=== PATIENT | female | born 1945 | race Caucasian/White ===

== ENCOUNTER → 2018-06-10 | Outpatient (CLI) | payer MEDICARE, OTHER ==
[~2018-06-10] MED LIST: IBAN150T6 PO; TRILI135PT PO; VALS-25 PO
--- NOTE | 2018-06-11 11:20 | RADIOLOGY IMAGING REPORT ---
FACILITY: [facility] PATIENT NAME: Irais DUMAS : [id number] MR: [id number] V: [id number] EXAM DATE: ORDERING PHYSICIAN: ROSY HERRERA TECHNOLOGIST: Calli Dobson PROCEDURE:BILATERAL DIGITAL SCREENING MAMMOGRAM WITH CAD ASSISTED INTERPRETATION & 3D TOMOSYNTHESIS COMPARISON:Prior mammograms 05/20/17, 05/17/16, 05/19/15, 05/16/14, 05/05/13, 04/29/12. INDICATIONS:SCREENING FINDINGS: The breasts are heterogeneously dense which may obscure small masses. The parenchymal pattern has remained stable allowing for difference in mammographic technique & patient positioning. There is no evidence of malignant appearing mass, malignant appearing calcifications or other secondary sign of malignancy in either breast. DIAGNOSTIC CATEGORY 1--NEGATIVE. RECOMMENDATIONS: ROUTINE MAMMOGRAM AND CLINICAL EVALUATION. IMPRESSION: BIRADS 1: Negative. No significant abnormality is seen. Dictated by: Tara Hernandez M.D. on 06/10/2018 at 16:38 Transcribed by: [email or web address] on 06/11/2018 at 8:22 Approved by: Tara Hernandez M.D. on 06/11/2018 at 11:19 [facility]
== END ==
LOC: MAMO 00:49
PROVIDERS: ATTEND Nurse Practitioner Family
DX: Z12.31 Encounter for screening mammogram for malignant neoplasm of breast (principal)
CPT/HCPCS: 77063; 77067